=== PATIENT | female | born 1960 | race Caucasian/White ===

== ENCOUNTER 2021-09-06 06:01 | Inpatient (IN) ==
[2021-09-06] MEDS ORDERED: CeFAZolin Syr 2,000MG/20 ML 2,000 MG/20 ML SYRINGE IVPB ONE (06:19)
[2021-09-06] MEDS ORDERED: Ondansetron 4 MG/2 ML VIAL IVP PRN ×2 (06:26→11:37)
[2021-09-06] MEDS ORDERED: Albuterol 2.5 MG/3 ML NEBULIZER IH ONE (06:26)
[2021-09-06] MEDS ORDERED: *HR* FentaNYL (PF) 100 MCG/2 ML VIAL IVP PRN (06:26)
[2021-09-06] MEDS ORDERED: *HR* HYDROmorphone PF 0.5 MG/0.5 ML SYRINGE IVP PRN (06:26)
[2021-09-06] MEDS ORDERED: Ringers Solution, Lactated 1,000 ML IVC SCH ×2 (06:30→11:37)
[2021-09-06] MEDS ORDERED: Vancomycin 1,000 MG VIAL ONE (06:45)
[2021-09-06] MEDS ORDERED: *HR* Succinylcholine 200 MG/10 ML VIAL IVP ONE (06:57)
[2021-09-06] MEDS ORDERED: *HR* FentaNYL (PF) 100 MCG/2 ML VIAL ONE ×3 (06:57→09:00)
[2021-09-06] MEDS ORDERED: *HR* Rocuronium Bromide 50 MG/5 ML VIAL ONE (06:57)
[2021-09-06] MEDS ORDERED: Lidocaine HCL 4 ML Topical Solution (Laryng-O-Jet Kit Sterile Pak) TP ONE ×2 (06:57→06:58)
[2021-09-06] MEDS ORDERED: Ondansetron 4 MG/2 ML VIAL ONE (06:57)
[2021-09-06] MEDS ORDERED: Lidocaine -MPF 2% 5 ML VIAL ONE (06:57)
[2021-09-06] MEDS ORDERED: *HR* Propofol 200 MG/20 ML VIAL IVP ONE (06:58)
[2021-09-06] MEDS ORDERED: *HR* Midazolam HCl 2 MG/2 ML VIAL ONE (06:58)
[2021-09-06] MEDS ORDERED: Famotidine 20 MG TABLET PO ONE (07:00)
[2021-09-06] MEDS ORDERED: Ropivacaine/PF 0.5% 30 ML VIAL ONE (07:03)
[2021-09-06] MEDS ORDERED: ROPIVACAINE/PF/NS 0.25% 1 EACH SYRINGE INTRAART ONE (07:03)
[2021-09-06] MEDS ORDERED: Gentamicin 400 MG in 0.9 % Sodium Chloride 100 ML IVPB ONE (07:15)
[2021-09-06] MEDS ORDERED: TOTAL JOINT MIXTURE (100ML) INTRAART ONE (07:30)
[2021-09-06] MEDS ORDERED: Povidone-Iodine 45 ML, Sodium Chloride IRRigation 1,000 ML IR ONE (07:30)
[2021-09-06] MEDS ORDERED: Ethanol\\Acetic Acid\\Na Ace\\Ben 1,000 ML IRRIG.SOLN IR ONE (07:39)
[2021-09-06] MEDS ORDERED: Tranexamic Acid 1,000 MG/10 ML VIAL ONE (07:42)
[2021-09-06] MEDS ORDERED: *HR* Promethazine 25 MG/ML VIAL IM PRN ×2 (11:37→11:41)
[2021-09-06] MEDS ORDERED: Sennosides 8.6 MG TABLET PO PRN (11:37)
[2021-09-06] MEDS ORDERED: MOM Conc 10 ML UD.LIQ PO PRN (11:37)
[2021-09-06] MEDS ORDERED: Naloxone 0.4 MG/ML INJ IVP PRN (11:37)
[2021-09-06] MEDS: Ketorolac 30 MG/ML VIAL IVP SCH ×2 (13:02→19:32)
[2021-09-06] MEDS ORDERED: 0.9 % Sodium Chloride 1,000 ML ONE (13:59)
[2021-09-06] MEDS: Ascorbic Acid 500 MG TABLET PO SCH (16:05)
[2021-09-06] MEDS: CeFAZolin 2 GM/120 ML BAG IVPB SCH (16:07)
[2021-09-06] MEDS: *HR* OxyCODONE Immed Rel 5 MG TABLET PO PRN (19:47)
[2021-09-07] MEDS: Ketorolac 30 MG/ML VIAL IVP SCH ×2 (00:22→05:52)
[2021-09-07] MEDS: CeFAZolin 2 GM/120 ML BAG IVPB SCH (00:25)
[2021-09-07 06:53] VITALS: BP 120/74; PULSE 78; TEMP 97.6
[2021-09-07] MEDS: *HR* OxyCODONE Immed Rel 5 MG TABLET PO PRN ×2 (06:53→14:32)
[2021-09-07 07:24] LABS: Basophils % 0.2 %; Eosinophils % 0.3 %; Hematocrit 32.3 % (35.3-44.9); Hemoglobin 10.5 g/dL (11.5-15.4); Immature Granulocytes % 0.3 % (0-4); Lymphocytes # 2.2 K/mcL (0.6-4.6); Lymphocytes % 20.9 %; Mean Corpuscular HGB Conc 32.5 g/dL (31.6-35.5); Mean Corpuscular Hemoglobin 29.3 pg (28.0-33.3); Mean Corpuscular Volume 90.2 fL (83.0-100.0); Mean Platelet Volume 10.3 fL (9.4-12.4); Monocytes # 0.6 K/mcL (0.0-1.3); Monocytes % 5.9 %; Neutrophils # 7.8 K/mcL (1.6-8.9); Platelet Count 272 K/mcL (140-400); Red Blood Count 3.58 M/mcL (3.82-4.97); Red Cell Distribution Width 13.7 % (11.5-14.5); Segmented Neutrophils % 72.4 %; White Blood Count 10.7 K/mcL (4.3-11.1)
[2021-09-07 08:53] LABS: BUN/Creatinine Ratio 15 (6-26); Blood Urea Nitrogen 11 mg/dL (6-20); Calcium 8.5 mg/dL (8.6-10.3); Carbon Dioxide 21 mEq/L (23-29); Chloride 111 mEq/L (98-107); Glucose 93 mg/dL (70-105); Osmolality,Calculated 289 (280-300); Potassium 3.9 mEq/L (3.5-5.1); Sodium 140 mEq/L (136-145); eGFR For African Americans > 60 (> 60); eGFR For Non-African Americans > 60 (> 60)
[2021-09-07] MEDS ORDERED: Multivit/Ca/Min/Fe/FA 1 TAB TABLET PO SCH (09:00)
[2021-09-07] MEDS ORDERED: lisinopriL 20 MG TABLET PO SCH (09:00)
[2021-09-07] MEDS ORDERED: Aspirin Enteric Coated 81 MG Tablet PO SCH (09:24)
[2021-09-07] MEDS: Ascorbic Acid 500 MG TABLET PO SCH (09:49)
[2021-09-07 10:01] VITALS: O2SAT 98
== END 2021-09-07 15:40 | disposition home health service (06) | DRG 326 ==
LOC: SDCAOSI 06:01 → 4WAOSI 11:35
PROVIDERS: ADMIT Orthopaedic Surgery; ATTEND Orthopaedic Surgery